=== PATIENT | female | born 1960 | race Caucasian/White ===

== ENCOUNTER → 2017-06-13 | Outpatient (CLI) | payer OTHER | LOC: BRMIMAGING 14:12 | PROVIDERS: ATTEND Physician Assistant Medical | DX: Z12.31 Encounter for screening mammogram for malignant neoplasm of breast (principal) | CPT/HCPCS: G0202 ==

== ENCOUNTER → 2018-06-21 | Outpatient (CLI) | payer OTHER | END | disposition home or self-care (01) | LOC: BRMIMAGING 13:07 | PROVIDERS: ATTEND Physician Assistant Medical | DX: Z12.31 Encounter for screening mammogram for malignant neoplasm of breast (principal) ==